=== PATIENT | female | born 1960 | race Caucasian/White ===

== ENCOUNTER 2017-03-09 12:46 | Emergency (ER) | payer MEDICARE, OTHER ==
[~2017-03-09] VITALS: Ht 162.6 cm; Wt 45.5 kg
[2017-03-09 12:49] VITALS: Ht 162.6 cm; Wt 45.5 kg
[2017-03-09] MEDS ORDERED: IBUP-1542 PO (13:05)
--- NOTE | 2017-03-09 15:32 | ERD ---
ER Documentation Chief Complaint Date/Time DATE: 03/09/17 TIME: 15:30 Chief Complaint patient confused, c/o blisters to bilateral feet "they put animals in there HPI Patient is a 56-year-old female with psychiatric disorder who presents with multiple complaints. Please note the history and physical exam is limited secondary to the patient's flight of ideas. The patient is complaining of blisters to her feet bilaterally. She also has a left wrist wound. She said that they have been there for "14 months". She denies suicidal or homicidal ideation. Upon review of old medical records the patient has multiple visits to the ER for various complaints. Review of the emergency department information exchange shows visits to 4 separate emergency departments. She says "I need narcotic medicines". ROS All systems reviewed and are negative except as per history of present illness. Medications Home Meds Active Scripts Ibuprofen* (Motrin*) 600 Mg Tab, 600 MG PO Q8, #30 TAB Prov:JERSON AVILA MD 03/09/17 Allergies Allergies: Coded Allergies: No Known Allergy (Unverified , 03/19/16) PMhx/Soc History of Surgery: Yes (MULTIPLE SURGERIES ) Anesthesia Reaction: No Hx Neurological Disorder: No Hx Respiratory Disorders: No Hx Cardiac Disorders: No Hx Psychiatric Problems: Yes (BIPOLAR AND BOARDERLINE ) Hx Miscellaneous Medical Probl: No Hx Alcohol Use: Yes Hx Substance Use: No Hx Tobacco Use: Yes FmHx Unable to obtain Physical Exam Vitals Vital Signs Date Time Temp Pulse Resp B/P Pulse Ox O2 Delivery O2 Flow Rate FiO2 03/09/17 12:49 97.6 87 18 107/70 97 Physical Exam Const: Disheveled Head: Atraumatic Eyes: Normal Conjunctiva ENT: Normal External Ears, Nose and Mouth. Neck: Full range of motion..~ No meningismus. Resp: Clear to auscultation bilaterally Cardio: Regular rate and rhythm, no murmurs Abd: Soft, non tender, non distended. Normal bowel sounds Skin: Blisters to the base of the feet bilaterally Back: No midline or flank tenderness Ext: No cyanosis, or edema Neur: Awake but with flight of ideas Psych: Flight of ideas and pressured speech without suicidal or homicidal ideation Procedures/MDM Smoking Cessation Therapy: Pt. was lectured for greater than 3 minutes on the health risks of continued smoking and the benefits of cessation. Patient is a 56-year-old female who presents with blisters to her feet. The patient will be given ibuprofen for pain and I will not give her narcotics. She will need to follow-up with a primary doctor. I told her that I would be happy to give her prescription for Keflex because she was requesting antibiotics which when I told her she would not get narcotic medicines and she became angry and left without waiting for her prescriptions her paperwork. She can return for any worsening symptoms. I do believe that she has psychosis but she does not appear to be a danger to herself or to others at this time. Departure Diagnosis: Primary Impression: Blisters of multiple sites Additional Impression: Psychosis Psychosis type: unspecified psychosis type Qualified Code: F29 - Psychosis, unspecified psychosis type Condition: Fair Patient Instructions: Blister Referrals: ALICJA VELASQUEZ MD Additional Instructions: Call your primary care doctor TOMORROW for an appointment during the next 1-2 days.See the doctor sooner or return here if your condition worsens before your appointment time. JERSON AVILA MD March 09, 2017 15:32
== END 2017-03-09 14:10 | disposition home or self-care (01) ==
LOC: E/R 12:46
DX: R23.8 Other skin changes (principal); F29 Unspecified psychosis not due to a substance or known physiological condition; Z87.891 Personal history of nicotine dependence
CPT/HCPCS: 99283

== ENCOUNTER 2017-07-01 11:32 | Emergency (ER) | payer MEDICARE, OTHER ==
[~2017-07-01] VITALS: Wt 55.0 kg
[~2017-07-01 11:32] MED LIST: IBUP-1542 PO
[2017-07-01] MEDS ORDERED: QUET100T PO (12:00)
[2017-07-01] MEDS ORDERED: DIC250 PO (12:00)
[2017-07-01] MEDS ORDERED: OLANZAPINE 5 MG TAB PO ONE (12:00)
--- NOTE | 2017-07-01 12:19 | ERD ---
ER Documentation Chief Complaint Date/Time DATE: 07/01/17 TIME: 12:13 Chief Complaint LESTER GARCIA HPI This a 56-year-old female here for right ear redness. The patient says that she got bit by spider in her right ear and she has had some redness and some mild swelling. The patient has a history of psychosis and I have seen her before. Patient has tangential speech ROS All systems reviewed and are negative except as per history of present illness. Medications Home Meds Active Scripts Quetiapine Fumarate* (Seroquel*) 100 Mg Tablet, 100 MG PO HS, #10 TAB Prov:LEKKOS,APOSTOLOS A. DO 07/01/17 Dicloxacillin Sodium* (Dynapen*) 250 Mg Cap, 250 MG PO QID for 10 Days, CAP Prov:LEKKOS,APOSTOLOS A. DO 07/01/17 Ibuprofen* (Motrin*) 600 Mg Tab, 600 MG PO Q8, #30 TAB Prov:JERSON AVILA MD 03/09/17 Allergies Allergies: Coded Allergies: No Known Allergy (Unverified , 03/19/16) PMhx/Soc History of Surgery: Yes (MULTIPLE SURGERIES ) Anesthesia Reaction: No Hx Neurological Disorder: No Hx Respiratory Disorders: No Hx Cardiac Disorders: No Hx Psychiatric Problems: Yes (BIPOLAR AND BOARDERLINE ) Hx Miscellaneous Medical Probl: No Hx Alcohol Use: Yes Hx Substance Use: No Hx Tobacco Use: Yes FmHx Family History: No coronary disease Physical Exam Vitals Vital Signs Date Time Temp Pulse Resp B/P Pulse Ox O2 Delivery O2 Flow Rate FiO2 07/01/17 11:36 98.0 78 18 111/71 99 Physical Exam Const: Well-developed, well-nourished Head: Atraumatic, normocephalic Eyes: Normal Conjunctiva, PERRLA, EOMI, normal sclera, no nystagmus ENT: Right anti-helix has some erythema and some mild swelling there is no abscess or pus, Nose and Mouth, moist mucus membranes.] Neck: Full range of motion. No meningismus, no lymphadenopathy. Resp: Clear to auscultation bilaterally, no wheezing, rhonchi, rales Cardio: Regular rate and rhythm, no murmurs, S1 S2 present Abd: Soft, non tender x 4, non distended. Normal bowel sounds, no guarding or rebound, no pulsitile abdominal masses or bruits Skin: No petechiae or rashes, no ecchymosis , no maculopapular rash Back: No midline or flank tenderness Ext: No cyanosis, or edema, FROM x 4, normal inspection, neurovascularly intact x 4 Neur: Awake and alert, STR 5/5 x 4, sensation intact x 4, no focal findings, cerebellum intact Psych: Tangential with word salad Results 24 hrs Current Medications Medications (Trade) Dose Ordered Sig/Talia Route PRN Reason Start Time Stop Time Status Last Admin Dose Admin Olanzapine (Zyprexa) 10 mg ONCE ONCE PO 07/01/17 12:00 07/01/17 12:01 DC Procedures/MDM We will give a dose of Zyprexa here and discharge her Seroquel. We will cover with dicloxacillin Departure Diagnosis: Primary Impression: Psychosis Psychosis type: unspecified psychosis type Qualified Code: F29 - Psychosis, unspecified psychosis type Additional Impression: Perichondritis of auricle Laterality: right Qualified Code: H61.001 - Perichondritis of right pinna Condition: Stable Patient Instructions: Cellulitis, Facial, Psychosis PIETRO DARDEN DO Jul 01, 2017 12:19
== END 2017-07-01 12:28 | disposition home or self-care (01) ==
LOC: E/R 11:32
DX: F29 Unspecified psychosis not due to a substance or known physiological condition (principal); H61.001 Unspecified perichondritis of right external ear; R40.2142 Coma scale, eyes open, spontaneous, at arrival to emergency department; R40.2252 Coma scale, best verbal response, oriented, at arrival to emergency department; R40.2362 Coma scale, best motor response, obeys commands, at arrival to emergency department; Z87.891 Personal history of nicotine dependence
CPT/HCPCS: 99284

== ENCOUNTER 2017-10-23 20:39 | Emergency (ER) | END 2017-10-23 22:17 | disposition home or self-care (01) ==